=== PATIENT | female | born 1985 | race Caucasian/White ===

== ENCOUNTER 2016-12-13 23:08 | Emergency (ER) | payer OTHER ==
--- NOTE | ~2016-12-13 | ER ---
PATIENT'S NAME: TYLER FINK [facility] AGE: 31 Y [address] ROOM: [place] [id number] LOCATION: [facility] ADMIT DATE: 12/13/2016 ER/Outpatient Report DISCHARGE DATE: FAMILY PHYSICIAN: Shelli Henry ATTENDING PHYSICIAN: Chitra Baron Time of Arrival: 2308 hours. Time of Evaluation: 2320 hours. CHIEF COMPLAINT: Nosebleed. HISTORY OF PRESENT ILLNESS: The patient is a 31-year-old female, who presents to the emergency department today with a chief complaint of nosebleed. She reports this started about 30 minutes prior to arrival. It is in her left naris. She reports she was sleeping in which she noticed it. She denies any fevers or chills. No nausea or vomiting. No diarrhea or constipation. No chest pain. No shortness of breath. No nasal congestion or drainage. No history of previous nosebleeds. She attempted to get this stopped, although was unable to get this stopped. PAST MEDICAL HISTORY: Uterine cancer. PAST SURGICAL HISTORY: Hysterectomy. SOCIAL HISTORY: The patient denies any tobacco use. Reports alcohol use every day. Denies any illicit drug use. ALLERGIES: TO PLASTIC TAPE. MEDICATIONS: None. PRIMARY CARE DOCTOR: SHELBY Mckeon. REVIEW OF SYSTEMS: All systems are reviewed by myself and are negative with the exception of those discussed in HPI and past medical history. PHYSICAL EXAMINATION: PATIENT'S NAME: TYLER FINK [facility] AGE: 31 Y [address] ROOM: [place] [id number] LOCATION: [facility] ADMIT DATE: 12/13/2016 ER/Outpatient Report DISCHARGE DATE: FAMILY PHYSICIAN: Shelli Henry ATTENDING PHYSICIAN: Chitra Baron VITAL SIGNS: Weight 74.9 kg, blood pressure 108/71, pulse 100, respiratory rate 16, temperature 97.7, and oxygen saturation 96% on room air. GENERAL: The patient is a 31-year-old female, well developed, well nourished, in no acute distress. HEENT: Head is normocephalic, atraumatic. Pupils are equal, round, and reactive to light. The left naris with a small amount of oozing noted at Kiesselbach's plexus. There is no posterior pharyngeal bleeding noted. Oropharynx is clear. NECK: Supple. There is no nuchal rigidity. CARDIOVASCULAR: Regular rate and rhythm. No murmurs, rubs, or gallops. LUNGS: Clear to auscultation bilaterally. No wheezes, rales, or rhonchi. ABDOMEN: Soft, nontender, and nondistended. No rebound, rigidity, or guarding. MUSCULOSKELETAL: The patient moves all 4 extremities. SKIN: Warm and dry. LABORATORY DATA AND X-RAYS: None. IMPRESSION: 1. Epistaxis with chemical cautery. 2. Initial visit. EMERGENCY DEPARTMENT COURSE: The patient brought back to the examination room. Seen and evaluated by myself. History and physical performed as described above. The left naris was evaluated. A one-to-one mixture of Afrin and lidocaine was instilled on a cotton tip applicator and held in place. This was removed. The bleeding was evaluated. Silver nitrate was used to cauterize the area of musculature of the anterior Kiesselbach's plexus. This resulted in resolution of the patient's bleeding. The patient was observed here in the emergency department. I see no evidence of bleeding. I have discussed followup with the primary care doctor in 2 to 3 days for re-evaluation. I have discussed return to care instructions including worsening symptoms or any other concerns to return to the emergency department as soon as possible. The patient is agreeable without further questions at this time. DISPOSITION: The patient was discharged home in good condition. CHITRA BARON DO PATIENT'S NAME: TYLER FINK [facility] AGE: 31 Y [address] ROOM: [place] [id number] LOCATION: ED ADMIT DATE: 12/13/2016 ER/Outpatient Report DISCHARGE DATE: FAMILY PHYSICIAN: Shelli Henry ATTENDING PHYSICIAN: Chitra Baron/susan /[id number] d: 12/14/16 0035 t: 09/12/17 1846, OUTPATIENT REPORT
== END 2016-12-14 00:18 | disposition disaster alternative care site (69) ==
LOC: GMED 23:08
PROC: 0W3Q3ZZ Control Bleeding in Respiratory Tract, Percutaneous Approach (ICD-10-PCS; principal; 2016-12-13)
DX: R04.0 Epistaxis (principal); Z85.42 Personal history of malignant neoplasm of other parts of uterus; Z91.048 Other nonmedicinal substance allergy status
CPT/HCPCS: A9270